=== PATIENT | female | born 1945 | race Caucasian/White ===

== ENCOUNTER 2019-10-17 06:00 | Outpatient (RCR) | payer MEDICARE, SELFPAY | END 2019-11-14 00:01 | LOC: LAB 06:00 | PROVIDERS: Family Provider Nurse Practitioner Family; Visit Provider Nurse Practitioner Family | DX: E11.9 Type 2 diabetes mellitus without complications (principal) | CPT/HCPCS: 36415; 80048 ==

== ENCOUNTER 2019-12-06 10:16 | Outpatient (RCR) | payer MEDICARE, SELFPAY ==
[2019-12-06 10:37] LABS: Basophils % 0.4 %; Eosinophils # 0.3 10^3/uL (0.0-0.8); Eosinophils % 4.3 %; Hematocrit 35.8 % (37.0-47.0); Hemoglobin 11.9 g/dL (11.5-15.3); Lymphocytes # 2.6 10^3/uL (0.8-4.8); Lymphocytes % 36.5 %; Mean Corpuscular HGB Conc 33.2 g/dL (30.0-36.0); Mean Corpuscular Hemoglobin 30.9 pg (28.0-34.0); Mean Platelet Volume 10.4 fL (7.4-10.4); Monocytes # 0.6 10^3/uL (0.2-0.9); Monocytes % 8.6 %; Neutrophils # 3.5 10^3/uL (1.8-7.7); Neutrophils % 49.8 %; Nucleated Red Blood Cells % 0 %; Platelet Count 230 10^3/cmm (130-400); Red Blood Count 3.85 10^6/uL (4.1-5.3); Red Cell Distribution Width 12.8 % (12.1-15.1)
[2019-12-06 11:00] LABS: Anion Gap 19.4 (5-19); Blood Urea Nitrogen 12 mg/dL (8-23); Carbon Dioxide 22 mmol/L (22-29); Chloride 96 mmol/L (98-107); Glucose 201 mg/dL (74-106); Osmolality Calculated 278 mOsm/kg (285-295); Potassium 4.4 mmol/L (3.5-5.1); Sodium 133 mmol/L (136-145)
[2019-12-06 11:07] LABS: Estmated Average Glucose 232; Hemoglobin A1C 9.7 % (4.0-6.0)
== END 2019-12-15 23:59 | disposition home or self-care (01) ==
LOC: LAB 10:16
PROVIDERS: Dermatology; Family Provider Nurse Practitioner Family; Visit Provider Nurse Practitioner Family
DX: E11.9 Type 2 diabetes mellitus without complications (principal); I10 Essential (primary) hypertension
CPT/HCPCS: 80048; 83036; 85025

== ENCOUNTER 2020-08-09 18:24 | Emergency (ER) | payer MEDICARE, SELFPAY ==
[2020-08-09 18:28] VITALS: BP 133/84; PULSE 87; RESP 18; TEMP 36.6; O2SAT 96; BMI 26.4
--- NOTE | 2020-08-09 18:37 | CTR_ITS ---
PROCEDURE INFORMATION: Exam: CT Head Without Contrast Exam date and time: 08/09/2020 6:43 PM Age: 74 years old Clinical indication: Injury or trauma; Fall; Initial encounter; Blunt trauma (contusions or hematomas) and laceration; Consciousness not specified; Without residual foreign body; Patient HX: Found on floor at assisted living facility lac to forehead unk loc TECHNIQUE: Imaging protocol: Computed tomography of the head without contrast. Sagittal and coronal reformatted images were created and reviewed. Radiation optimization: All CT scans at this facility use at least one of these dose optimization techniques: automated exposure control; mA and/or kV adjustment per patient size (includes targeted exams where dose is matched to clinical indication); or iterative reconstruction. COMPARISON: CT head wo con* [id number] 12/30/2018 9:14 AM RADIATION DOSE METRICS: Total DLP (mGy-cm): 760.85 FINDINGS: Brain: No acute intracranial hemorrhage. No acute infarct. No intra-axial or extra-axial masses. Sagastume-white matter differentiation is preserved. No cerebral edema. No extra-axial fluid collections. No midline shift. No evidence for Chiari 1 malformation. Stable moderate atrophy of the brain parenchyma. Stable markedly decreased attenuation in the deep white matter, consistent with severe chronic microangiopathic change. Cerebral ventricles: No hydrocephalus. Bones/joints: Moderate left deviation of the visualized nasal septum. Paranasal sinuses: Visualized paranasal sinuses are clear. Mastoid air cells: Mastoid air cells are clear bilaterally. Orbits: No acute abnormality in the visualized orbits. Vasculature: Atherosclerotic changes in the visualized arteries. Soft tissues: Small frontal scalp hematoma/laceration extending from the midline to the right. CT/CT head wo con* [id number] IMPRESSION: 1. No acute abnormality of the brain. 2. Stable moderate atrophy of the brain parenchyma. 3. Stable severe chronic white matter microangiopathic change. 4. Small frontal scalp hematoma/laceration extending from the midline to the right. 5. Incidental/nonacute findings are listed in the report. Radiation Dose CTDIVOL = (mGy): DLP = 760.85 (mGy-cm)
--- NOTE | 2020-08-09 18:37 | CTR_ITS ---
PROCEDURE INFORMATION: Exam: CT Cervical Spine Without Contrast Exam date and time: 08/09/2020 6:43 PM Age: 74 years old Clinical indication: Injury or trauma; Fall; Initial encounter; Blunt trauma; Patient HX: Found on floor at assisted living facility lac to forehead unk loc TECHNIQUE: Imaging protocol: Computed tomography images of the cervical spine without contrast. Sagittal and coronal reformatted images were created and reviewed. Radiation optimization: All CT scans at this facility use at least one of these dose optimization techniques: automated exposure control; mA and/or kV adjustment per patient size (includes targeted exams where dose is matched to clinical indication); or iterative reconstruction. COMPARISON: No relevant prior studies available. RADIATION DOSE METRICS: Total DLP (mGy-cm): 228.97 FINDINGS: Vertebrae: Vertebral body height is maintained. No subluxation. Normal bone mineralization. No acute fracture. Discs/Spinal canal/Neural foramina: Multilevel degenerative changes of varying severity in the visualized spine. Moderate spinal canal stenosis at C3-C4. Multilevel foraminal stenosis of varying severity in the cervical spine. Epidural space: No evidence for an epidural hematoma. Soft tissues: No soft tissue swelling. No radiopaque foreign body. Lungs: Visualized lungs are clear. Vasculature: Atherosclerotic changes in the visualized arteries. CT/CT cervical spin wo con* [id number] IMPRESSION: 1. No acute fracture of the cervical spine. 2. Multilevel degenerative changes of varying severity in the visualized spine. 3. Incidental/nonacute findings are listed in the report. Radiation Dose CTDIVOL = (mGy): DLP = 228.97 (mGy-cm)
--- NOTE | 2020-08-09 18:39 | PC.NURSE ---
pt to ct by stretcher with tech
--- NOTE | 2020-08-09 19:56 | PC.NURSE ---
Contacted patient's brother, Jake, to arrange transport. Jake is oh his way to pick her up now.
[2020-08-09 19:57] VITALS: BP 99/74; PULSE 90; RESP 12; O2SAT 98
--- NOTE | 2020-08-10 19:01 | ED_ITS ---
HPI - Head Injury General: Chief complaint: Head Injury Stated complaint: LACERATION POST FALL Time Seen by Provider: 08/09/20 18:38 History of Present Illness: HPI Narrative: 74-year-old senior care patient. She fell in the senior care. Unknown loss of consciousness. She has pain to her head, and some neck pain. No other complaints. She evidently was alert and oriented x3 on EMS arrival, but has had some decreased mental status here. MD Complaint: head injury Onset (ago): minute(s) Mechanism of Injury: fall Place: other (senior care) Loss of Consciousness: unsure Location of injury: frontal Quality: dull Radiation: none Other Injuries: none Associated symptoms: Reports neck pain; Deny nausea or vomiting Review of Systems Const: Denies: fever(s) or chills Eyes: Denies: blurry vision ENMT: Denies: swelling of lips/tongue, bleeding gums or epistaxis Card: Denies: chest pain, palpitations or irregular heart rhythm Resp: Denies: dyspnea, productive cough, non-productive cough or wheezing GI: Denies: abdominal pain, nausea, vomiting, rectal pain, hematochezia or melena : Denies: dysuria or hematuria Musc: Reports: neck pain; Denies: back pain, joint redness or joint warmth Skin/Breast: Denies: rash, pruritus or erythema Neuro: Denies: headache(s), dizziness or seizure-like activity Psych: Denies: anxiety Physical Exam Const: GENERAL APPEARANCE: well developed ORIENTATION/CONSCIOUSNESS: Yes oriented to person and Yes oriented to place; not oriented to time HENMT: COMMON NORMALS: normocephalic, external ears normal and Normal external nose present HEAD & SCALP: normocephalic FACE & SINUS: normal facial exam NOSE: Normal external nose present and No nasal discharge present EXTERNAL EAR: Yes external ears normal Eye: COMMON NORMALS: Equal, round and reactive pupils present, EOMs intact b ilaterally and conjunctivae normal EYELID: eyelids normal CONJUNCTIVA: Yes conjunctivae normal PUPIL: Yes Equal, round and reactive pupils present Neck/C-Spine: GENERAL: No tracheal deviation Chest: COMMONS NORMALS: normal inspection of the chest CHEST: No tenderness Resp: COMMON NORMALS: clear to auscultation bilaterally EFFORT & INSPECTION: No tachypneic, No respiratory distress and No tracheal deviation AUSCULTATION: clear to auscultation bilaterally, no rhonchi, no wheezes and lung sounds not diminished Cardio: COMMON NORMALS: regular rate and regular rhythm RATE: regular rate RHYTHM: regular rhythm HEART SOUNDS: no murmurs PERIPHERAL PULSES: radial pulses present GI: INSPECTION: No abdominal distension AUSCULTATION: No Hyperactive bowel sounds present and No Hypoactive bowel sounds present PALPATION: No Guarding due to palpation present (GI) and No Rigid due to palpation PERCUSSION: no dullness to percussion and no tympanic to percussion Neuro: SENSORIUM/ORIENTATION: Yes oriented to person, Yes oriented to place and No oriented to time Psych: COMMON NORMALS: mental status grossly normal Skin: COMMON NORMALS: no rashes or lesions noted GENERAL SKIN EXAM: no rashes or lesions noted Course Vital Signs: Vital signs: Vital Signs Temperature 97.9 F 08/09/20 18:28 Pulse Rate 90 08/09/20 19:57 Respiratory Rate 12 08/09/20 19:57 Blood Pressure 99/74 08/09/20 19:57 Pulse Oximetry 98 08/09/20 19:57 MDM - Head Injury MDM Narrative: Medical decision making narrative: Head and cervical spine CTs are negative. She is awake and talking. She does have a history of dementia, which may attribute to her decreased mental status. She will be discharged. Discharge Plan Discharge Patient Disposition: Home Clinical Impression: Concussion with loss of consciousness Qualifiers: Encounter type: initial encounter Qualified Code(s): S06.0X9A - Concussion with loss of consciousness of unspecified duration, initial encounter Condition: Stable Discharge Orders: Discharge Order (Routine); Ordered 08/09/20 Ordered By: Victoriano Eckert Referrals: Drea Garcia ARNP [Nurse Practitioner] - 4-7 days Discharge Diet: Advance as tolerated Discharge Activity: Increase activity as tolerated Patient Instructions: Concussion (ED) Activity Restrictions/Additional Instructions: Return for worsening mental status, repeated episodes of vomiting, worsening headache, fever, other concerning symptoms Discharge Date/Time: 08/09/20 20:48 Coding Level of Care Code ED Alteration Inspector for Jefferson Burciaga
== END 2020-08-09 20:48 | disposition home or self-care (01) ==
LOC: ER 20:14
PROVIDERS: Emergency Provider Emergency Medicine
DX: S06.0X9A Concussion with loss of consciousness of unspecified duration, initial encounter (principal); W19.XXXA Unspecified fall, initial encounter; Y92.129 Unspecified place in nursing home as the place of occurrence of the external cause
CPT/HCPCS: 12345; 70450; 72125; 99281; 99283

== ENCOUNTER 2021-03-28 14:15 | Outpatient (CLI) | payer MEDICARE, SELFPAY ==
--- NOTE | 2021-03-28 14:38 | USCV_ITS ---
Do García Age: 75 Gender: F : 1945 Exam Date: 03/28/2021 15:12 Ordering Phys: Marlene Mejia NP Technologist: HERNANDEZ Exam Location: [facility] – [place], [place] Indication: PAIN IN RLE HISTORY: Lower extremity pain. PROCEDURES: Venous duplex imaging was performed in only the right lower extremity. The following venous structures were evaluated: common femoral vein, profunda vein, proximal portion of the greater saphenous vein, superficial femoral vein, and the popliteal vein. In addition, the posterior tibial and peroneal trunk were evaluated. Serial compression, augmentation maneuvers, and spectral Doppler flow evaluation were performed. FINDINGS: Normal 2-D Doppler and augmentation and compressibility throughout the lower extremity venous structures. Additional imaging through the proximal calf veins also reveals no thrombus. Limited evaluation of the greater saphenous vein is patent with no thrombus. CONCLUSIONS No DVT right lower extremity. Dr. Tosha Haley DO (Electronically Signed) Final Date: 28 Mar 2021 16:01 S
== END 2021-03-28 14:16 | disposition home or self-care (01) ==
LOC: RAD 14:22
PROVIDERS: Visit Provider Nurse Practitioner Family
DX: M79.604 Pain in right leg (principal)
CPT/HCPCS: 93971

== ENCOUNTER 2021-04-29 09:04 | Day surgery (SDC) | payer MEDICARE, SELFPAY ==
[2021-04-29] VITALS (18 sets, daily range): BP systolic 83–140; BP diastolic 54–91; PULSE 70–108; RESP 6–21; TEMP 36.3–36.6; O2SAT 83–99; BMI 16.6
--- NOTE | 2021-04-29 08:46 | XACV_ITS ---
Ht: 152 cm Wt: 39 kg BSA: 1.27 m2 Any Known Allergies: Other Gender: Female : 1945 Exam Type: Invasive Peripheral Vascular Procedure(s): Procedure Description: Peripheral Cath Diagnostic Procedure Procedure Description: Abdominal aortic angiography Procedure Description: Lower extremities' angiography Exam Priority: Routine Abdominal Diagnostic Findings Patent distal Aorta. Lower Extremity Diagnostic Findings Right common iliac artery: Patent Right external iliac artery: Patent Right internal iliac artery: Patent Right common femoral artery: Patent Right profunda femoral artery: Patent Right SFA: It is a calcified vessel with servere subtotal occlusion of the distal vessel at the junction with popliteal vessel. There are collaterals from the SFA that supply below the knee territories. Right popliteal artery: Subtotally occluded Below the knee vessels: TP trunk: Severe diffusely diseased small sized vessel. Posterior tibial artery: Supplied by collaterals. Small sized, diffusely diseased vessel. Anterior tibial artery: Occluded however reconstitutes with significant collaterals. Peroneal artery: Small sized, diffusely diseased vessel.. Left right common iliac artery: Patent Left external iliac artery: Patent Left internal iliac artery: Patent Left common femoral artery: Patent Left profunda femoral artery: Patent Left SFA: Mid to distal vessel has serial, calcified, severe stenosis. Left popliteal artery: Patent Below the knee vessels are not well-visualized. TP segment: Appears to be occluded, collateral supply is seen. Anterior tibial artery: Appears to be occluded. However because of limited visualization cannot assess left [id number] arteries well. . Lower Extremity Interventional Findings Procedure detail: Access was obtained in left common femoral artery. After performing abdominal angiogram with a UF catheter, guidewire was advanced into right SFA. A long sheath was placed in right external iliac artery. With the help of Glidewire and seeker support catheter we attempted to cross the distal SFA to popliteal lesion. However it was heavily calcified and the wire was going to subintimately. Decreased flow was noted in the popliteal artery. However patient had a strong collaterals secondary to subtotal occlusion before and pulses were palpable and dopplerable in the right foot. At this time we decided to abort further attempts for revascularization and treat patient medically.. Conclusions Severe peripheral artery disease. Unsuccessful revascularization of the right lower extremity. Has good collateral flow that supplies the below the knee arteries. Will recommend medical therapy as run off is with small sized vessels. Will also discuss with Dr Ayala if bypass surgery is an option but given good collaterals and small sized run off vessels, medical therapy for now. Left SFA with severe disease. Below the knee has severe disease but not well visualized. Recommendations Transfer to [facility]. Will observe overnight. Continue medical therapy. Outpatient cardiology follow up. Hemodynamic Data Phase:Rest AO : 117.0 / 84.0 ( 90.0 ) @ 10:52:00 AM Access Site Site: Left Femoral artery Sheath Size: 6 Fr Hemost... Method: Manual Compression Hemost... Success: Successful Procedure Details Findings Pre-Procedure Time Out. Identified patient by full name and date of as verbalized by the patient/guarantor. Does the consent match the physician's order: Yes. Accurate & Complete Informed Consent: Yes. Inpatient/Outpatient History & Physical on Chart: Yes. If H&P is completed, is and addenduem needed: No; If yes, is the addendum complete: N/A. Visualize and Verify Site with Patient/Guarantor: N/A. Relevant Radiology Images available: N/A. Pre-op teaching completed and patient verbalized understanding. The risks, benefits, and alternatives of sedation and/or procedure were discussed by physician. The patient agrees to continue. Procedure started. Physician arrived. Correct patient, site and procedure confirmed by cath team. PERRLA. Strong, equal hand investigator vice bilaterally. Lungs clear x 5 lobes. IV Site on Arrival: 20 gauge in the left wrist. IV Fluids: 0.9% NaCl at KVO. 0 mL infused prior to engineering laboratory technician. Pre Procedural Pulses: bilateral dorsalis pedis was Doppled. Pre Procedural Pulses: bilateral posterior tibial was Doppled. Pre Procedural Pulses: right radial was 1+. Pre Procedural Pulses: left radial was 3+. Oxygen started at 2liters/min via nasal canula. bilateral groins was prepped with chloroprep then draped in the usual sterile fashion. Baseline sample Acquired. HR: 84 BPM. Physician scrubbed in. Time out performed with cath team. Lidocaine 1% infiltrated to the left groin. Arterial access obtained with micropuncture set. Lidocaine 1% infiltrated to the left groin. Equipment: Peripheral. Cardiac Cath Pack. ACIST Manifold Kit Model BT 2000. Heparinized Saline (2 units/mL), 1000 mL bag. Inventory is JJ 6F 11cm Rosa Maria Plus Sheath. A Deem 5F UF catheter 65cm was advanced over the wire and used for Abdominal aortogram with runoff. Abdominal aortogram performed in AP @ 12 mL/sec for a total of 30 mL. Glidewire inserted. Catheter removed over the glide wire. A JJ 5F RIM 65 cm Diagnostic Catheter was advanced over the wire and used for Lower extremity arteriography. Right leg runoff 10 ml for total of 20 ml. Catheter removed over the glide wire. Short 6 fr sheath exchanged for long 45 cm 6 fr Flexor sheath. Inventory is CK 6 FR FLEXOR SHEATH 45CM. A 5Fr SEEKER catheter in over wire. Glidewire out. Hand injection performed. Glidewire inserted. Glidewire out. Runthrough 300 cm wire inserted. Runthrough wire out. Hand injection performed. Runthrough 300 cm wire inserted. Runthrough wire out. Glidewire inserted. Glidewire out. Hand injection performed. Runthrough 300 cm wire inserted. Runthrough wire out. Seeker catheter removed. Right leg runoff 10 ml for total of 20 ml. Long 45 cm 6 fr Flexor sheath exchanged for short 6 fr sheath. Left leg runoff 10 ml for total of 30 ml through the sheath. DSA picture of left lower leg 10 ml for total of 30 ml. Physician scrubbed out. Sheath(s) removed and manual pressure held until hemostasis was achieved. Sterile 4x4 and Op-site applied to the puncture site. No oozing or hematoma noted. Post sheath removal instructions were given and the patient verbalized understanding. A Manual Compression was successful obtaining hemostatsis at the Left Femoral artery insertion site. Post Procedure: Pulses reassessed and unchanged. PERRLA. Strong, equal hand investigator vice bilaterally. No VTE prophylaxis required. Contrast type used: Visipaque 320 mgI/mL, 500 mL bottle. Post-op diagnosis: sub total occlusion distal SFA, mid to distal L sfa stenosis. Complications: none. Estimated blood loss: 5mL-10mL. Medication's Wasted: Lidocaine 1% = 10 mL. Medication's Wasted: Heparin = 1000 units. Total IV fluids: 80 mL. Medication's Wasted: Other = versed 1 mg. Medication's Wasted: Other = fentanyl 50 mcg. Procedure completed. Patient transferred by bed to 1st floor. Vital chart was stopped. Procedure Medications Start: 11:36 AM Stop: 11:36 AM Medication: Versed Amount: 1 mg Route: I.V. Start: 11:36 AM Stop: 11:36 AM Medication: Fentanyl Amount: 25 mcg Route: I.V. Start: 11:48 AM Stop: 11:48 AM Medication: Versed Amount: 1 mg Route: I.V. Start: 11:52 AM Stop: 11:52 AM Medication: Fentanyl Amount: 12.5 mcg Route: I.V. Start: 12:31 PM Stop: 12:31 PM Medication: Versed Amount: 1 mg Route: I.V. Start: 12:31 PM Stop: 12:31 PM Medication: Fentanyl Amount: 12.5 mcg Route: I.V. I, the attending physician, have reviewed and verified all procedure medications. Yes, all medications given per verbal order History/Risk Factors Hypertension: No Dyslipidemia: No Peripheral Arterial Disease (PAD): Yes Obesity: No Renal Disease: No Tobacco Use: Never Prior Interventions PCI: No CABG: No Valve Surgery: No Report Signatures Finalized by Willian Lerma MD on 05/13/2021 09:01 PM
[2021-04-29] MEDS: diphenhydrAMINE 50 mg Capsule PO (09:47)
--- NOTE | 2021-04-29 11:41 | W.PM.OPSUD ---
Surgery/Procedure H&P Update DATE OF PROCEDURE: April 29, 2021 DATE H&P PERFORMED: 04/24/21 H&P UPDATE INFORMATION: I have reviewed H&P completed within last 30 days, I have examined patient prior to procedure and Changes to prior documentation as noted here CHANGES TO PREVIOUS DOCUMENTATION: Patient has critical limb ischemia with non healing wounds on the right foot (toes). Discussed with patient's brother the risks and benefits of the procedure who understands the risks and benefits and wants to proceed with the procedure. PREOP DIAGNOSIS: Critical limb ischemia PRIMARY INDICATION FOR PROCEDURE: Critical limb ischemia PLANNED PROCEDURE: Operation Date: 04/29/21 10:00 Proposed Procedures p Peripheral Diagnostic 81534 I73.9(Not Applicable) - Willian Lerma M.D Possible peripheral intervention PATIENT REASSESSED PRIOR TO SEDATION, WITH NO CHANGE NOTED: Yes PHYSICAL EXAM: alert, oriented x 3, clear to auscultation bilaterally and regular rate & rhythm AIRWAY EVAL/ANESTHESIA PLAN: ASA III, Monitored Anesthesia, Local Anesthesia, Risks, benefits & alternatives of sedation and/or procedure discussed and Patient agrees to continue as planned (Patient has significant dementia. Her brother gave the consent for the procedure)
[2021-04-29] MEDS: memantine 5 mg tablet 10 MG PO (18:03)
[2021-04-29] MEDS: temazepam 15 mg Capsule PO (23:12)
[2021-04-29] MEDS: sodium chloride 0.9% 250 ML IV (23:50)
[2021-04-30] VITALS (8 sets, daily range): BP systolic 97–131; BP diastolic 63–93; PULSE 79–96; RESP 12–18; TEMP 36.4–36.6; O2SAT 95–99
--- NOTE | 2021-04-30 01:26 | PC.NURSE ---
notified Dr Dillard of low bp 83/54, 250 cc bolus ordered, bp incresed to 97/59
[2021-04-30] MEDS: sodium chloride 0.9% 1,000 ML 75 ML IV (01:47)
[2021-04-30 05:27] LABS: Basophils % 0.7 %; Eosinophils # 0.1 10^3/uL (0.0-0.8); Eosinophils % 2.1 %; Hematocrit 31.7 % (37.0-47.0); Hemoglobin 10.1 g/dL (11.5-15.3); Lymphocytes # 1.8 10^3/uL (0.8-4.8); Mean Corpuscular HGB Conc 31.9 g/dL (30.0-36.0); Mean Corpuscular Hemoglobin 30.4 pg (28.0-34.0); Mean Corpuscular Volume 95.5 fL (81-99); Mean Platelet Volume 10.8 fL (7.4-10.4); Monocytes # 0.5 10^3/uL (0.2-0.9); Monocytes % 8.7 %; Neutrophils # 3.56 10^3/uL (1.8-7.7); Neutrophils % 58.2 %; Nucleated Red Blood Cells % 0 %; Platelet Count 183 10^3/cmm (130-400); Red Blood Count 3.32 10^6/uL (4.1-5.3); Red Cell Distribution Width 13.1 % (12.1-15.1); White Blood Count 6.1 10^3/uL (4.0-10.0)
[2021-04-30 05:40] LABS: Blood Urea Nitrogen 12 mg/dL (8-23); Calcium 8.5 mg/dL (8.5-10.5); Carbon Dioxide 20 mmol/L (22-29); Chloride 106 mmol/L (98-107); Glucose 94 mg/dL (65-115); Osmolality Calculated 284 mOsm/kg (285-295); Sodium 137 mmol/L (136-145)
[2021-04-30] MEDS: acetaminophen 325 mg Tablet 650 MG PO (05:40)
[2021-04-30 05:41] LABS: Anion Gap 14.7 (5-19); Potassium 3.7 mmol/L (3.5-5.1)
--- NOTE | 2021-04-30 07:00 | PC.NURSE ---
Received report from MO He. Patient is resting in bed, oriented to self only. Bed alarm has been set and patient educated about fall risk and the use of call luna for assistance.
[2021-04-30] MEDS: docusate sodium 100 mg Capsule PO (09:27)
[2021-04-30] MEDS: aspirin 81 mg EC Tablet PO (09:27)
[2021-04-30] MEDS: clopidogrel 75 mg Tablet PO (09:27)
[2021-04-30] MEDS: atorvastatin 40 mg Tablet 20 MG PO (09:27)
[2021-04-30] MEDS: lisinopril 2.5 mg Tablet PO (09:28)
[2021-04-30] MEDS: mirtazapine 15 mg Tablet 7.5 MG PO (09:28)
[2021-04-30] MEDS: memantine 5 mg tablet 10 MG PO ×2 (09:28→18:47)
--- NOTE | 2021-04-30 09:56 | PM.SDS ---
Short Stay Summary Providers Date of Admit/Discharge: 05/13/21 Attending Provider: Willian Lerma M.D Primary Care Provider: Kylie Mcallister MD Chief Complaint: Peripheral Diagnostic HPI History of Present Illness Do García is a 75 year old female who has PMH of hypertension and dementia was referred by Dr Ayala for peripheral angiogram with possible percutaneous intervention. She has critical limb ischemia with non healing wounds on the right foot toes. Review of Systems Narrative: Patient has dementia and does not accurately describe her symptoms Eyes: Denies: change in vision or eye redness ENMT: Denies: throat pain, odynophagia, mouth pain or epistaxis Card: Denies: chest pain, palpitations, irregular heart rhythm, edema, syncope, pre-syncope, dyspnea on exertion, orthopnea or leg pain with exertion Resp: Denies: dyspnea, productive cough or wheezing GI: Denies: nausea, vomiting, hematemesis, hematochezia or melena : Denies: hematuria Musc: Denies: extremity swelling or joint pain Skin/Breast: Denies: rash, pruritus, erythema or new lesions Neuro: Reports: sensory changes (feet); Denies: numbness in extremities, weakness in extremities, frequent falls, Slurred speech present or difficulty communicating thoughts Psych: Denies: anxiety, depression, irritability, suicidal ideation or homicidal ideation Endo: Denies: polyuria, polydipsia or excessive sweating Herb/Lymph: Denies: easy bruising or easy bleeding Home Meds/Allergies Home Medications and Allergies Home Medications Medication Instructions Recorded Confirmed Type alprazolam 0.25 mg tablet 0.125 mg PO PRN PRN tab 04/24/21 05/08/21 History aspirin 81 mg tablet,delayed 81 mg PO DAILY 04/24/21 05/08/21 History release atorvastatin 20 mg tablet 20 mg PO DAILY 04/24/21 05/08/21 History clopidogrel 75 mg tablet 75 mg PO DAILY 04/24/21 05/08/21 History docusate sodium 100 mg capsule 100 mg PO DAILY 04/24/21 05/08/21 History latanoprost 0.005 % eye drops 1 drp OPHTHALMIC (EYE) DAILY 04/24/21 05/08/21 History lisinopril 2.5 mg tablet 2.5 mg PO DAILY 04/24/21 05/08/21 History memantine 10 mg tablet 10 mg PO BID 04/24/21 05/08/21 History metformin 500 mg tablet 500 mg PO DAILY 04/24/21 05/08/21 History mirtazapine 7.5 mg tablet 7.5 mg PO DAILY 04/24/21 05/08/21 History ondansetron HCl 4 mg tablet 4 mg PO .q4hr PRN tab 04/24/21 05/08/21 History acetaminophen 325 mg tablet 325 mg PO QID PRN 05/08/21 05/08/21 History coenzyme Q10 100 mg capsule 100 mg PO DAILY 05/08/21 05/08/21 History magnesium hydroxide 400 mg/5 mL 5 ml PO DAILY PRN 05/08/21 05/08/21 History oral suspension nitroglycerin 0.4 mg sublingual 0.4 mg SUBLINGUAL Q5M PRN 05/08/21 05/08/21 History tablet tuberculin PPD INTRADERMAL 05/08/21 05/08/21 History Allergies Allergy/AdvReac Type Severity Reaction Status Date / Time donepezil [From Aricept] Allergy Unknown UNKNOWN Verified 05/08/21 13:41 PFSH Acute PFSH: Medical History Alzheimer disease Peripheral Vascular Disease Family History Mother CAD (coronary artery disease) Sister CAD (coronary artery disease) Father Cancer Denies family history of Diabetes Stroke Social History Smoking and tobacco status: never smoked Alcohol intake: never Vitals/I&O/Wt Last Vital Signs Temp 97.8 F 04/30/21 07:16 Pulse 95 04/30/21 08:23 Resp 18 04/30/21 07:16 BP 102/69 04/30/21 07:16 Pulse Ox 96 04/30/21 08:23 04/29/21 04/30/21 04/30/21 22:59 06:59 14:59 Intake Total 120 / 120 310 / 430 Balance 120 / 120 310 / 430 Weight last 48 hrs Weight 85 lb Physical Exam Const: COMMON NORMALS: no acute distress and alert (Oriented only to self) GENERAL APPEARANCE: cooperative HENMT: COMMON NORMALS: normocephalic HEAD & SCALP: normocephalic Eye: COMMON NORMALS: Equal, round and reactive pupils present PUPIL: Yes Equal, round and reactive pupils present Resp: COMMON NORMALS: clear to auscultation bilaterally AUSCULTATION: clear to auscultation bilaterally Cardio: COMMON NORMALS: regular rate, regular rhythm, S1 normal heart sound present and S2 normal heart sound present RATE: regular rate RHYTHM: regular rhythm HEART SOUNDS: S1 normal heart sound present and S2 normal heart sound present GI: COMMON NORMALS: Soft to palpation PALPATION: Yes Soft to palpation : COMMON NORMALS: Yes no CVA tenderness BLADDER/KIDNEY EXAM: Yes no CVA tenderness Back/Pelvis: COMMON NORMALS: no CVA tenderness Neuro: SENSORIUM/ORIENTATION: Yes alert (Oriented only to self) Hospital Course Hospital Course Do García is a 75 year old female who has PMH of hypertension and dementia was referred by Dr Ayala for peripheral angiogram with possible percutaneous intervention. She has critical limb ischemia with non healing wounds on the right foot toes. Peripheral angiogram showed severe PAD with subtotal occlusion of distal SFA, with good collaterals supplying below the knee arteries. TP trunk was severely diseased. AT had total occluson with reconstitution from collateral supply. Medical therapy was opted as equipment could not be crossed into distal vasculature. SSS Data Data Completed and Pending: Pending at discharge Category Date Time Status ASSISTANT DISTRICT ATTORNEY request for service Routin e Exams 04/29/21 08:46 Taken Discharge Plan Discharge Patient Disposition: Xfer SNF Condition: Stable Prescriptions: Continued memantine 10 mg tablet 10 mg PO BID RF: 0 aspirin 81 mg tablet,delayed release (DR/EC) 81 mg PO DAILY RF: 0 clopidogrel 75 mg tablet 75 mg PO DAILY RF: 0 lisinopril 2.5 mg tablet 2.5 mg PO DAILY RF: 0 alprazolam 0.25 mg tablet 0.125 mg PO PRN PRN (Reason: Anxiety) RF: 0 atorvastatin 20 mg tablet 20 mg PO DAILY RF: 0 mirtazapine 7.5 mg tablet 7.5 mg PO DAILY RF: 0 docusate sodium 100 mg capsule 100 mg PO DAILY RF: 0 ondansetron HCl 4 mg tablet 4 mg PO .q4hr PRN (Reason: Nausea) RF: 0 latanoprost 0.005 % drops 1 drp ophthalmic (eye) DAILY RF: 0 Held metformin 500 mg tablet 500 mg PO DAILY RF: 0 Hold Instructions: Resume on 05/02/21. No Action Tubersol 5 tub. unit /0.1 mL solution intradermal RF: 0 nitroglycerin 0.4 mg tablet, sublingual 0.4 mg sublingual Q5M PRNRF: 0 acetaminophen [Tylenol] 325 mg tablet 325 mg PO QID PRNRF: 0 coenzyme Q10 100 mg capsule 100 mg PO DAILY RF: 0 magnesium hydroxide [Milk of Magnesia] 400 mg/5 mL suspension 5 ml PO DAILY PRNRF: 0 Discharge Orders: Discharge Order (Routine); Ordered 04/30/21 Ordered By: Willian Lerma Referrals: [facility] [place] [Outside] Willian Lerma M.D [Physician] - 1 month Candy Borjas FNP [Nurse Practitioner] - 7-10 days Discharge Diet: Cardiac Discharge Activity: Increase activity as tolerated Activity Restrictions/Additional Instructions: Please do not lift more than 5 pounds of weight for the next 5 days Attestations Medical Necessity Statement*: Care not expected to cross 2 mid nights. Time Spent in Patient Care*: less than 30 min Quality Metrics Clinical Quality Measures: During this hospital stay, did patient experience: None Coding Level of Care Code Acute Sweatband Flanger for Jefferson Burciaga
--- NOTE | 2021-04-30 19:36 | PC.NURSE ---
AnJ arrived to warehouse order picker patient. Stated that he came earlier and no one anywhere could locate the patient and that is what caused the delay.Patient belongings sent with her, SNF packet sent, report called to [facility] nurse, Jud at 12:54pm. Taty, egg caser arranged transport prior to report being called, was told ride was scheduled for 1700pm. Patient left via personal wheelchair. VS stable upon departure. IV removed, intact and tolerated well.
== END 2021-04-30 19:42 | disposition skilled nursing facility (03) ==
LOC: CCL 09:18 → CSU 11:01
PROVIDERS: PCP Family Medicine; Visit Provider Internal Medicine
DX: I70.221 Atherosclerosis of native arteries of extremities with rest pain, right leg (principal); I70.92 Chronic total occlusion of artery of the extremities; I10 Essential (primary) hypertension; F03.90 Unspecified dementia, unspecified severity, without behavioral disturbance, psychotic disturbance, mood disturbance, and anxiety; Z79.82 Long term (current) use of aspirin; Z82.49 Family history of ischemic heart disease and other diseases of the circulatory system
CPT/HCPCS: 36415; 75625; 75716; 80048; 85025; C1769; C1887; C1894; J1644; J2250; J3010; J7030; J7050; Q0163; Q9967

== ENCOUNTER 2021-06-27 03:02 | Emergency (ER) | payer MEDICARE, SELFPAY ==
[2021-06-27 03:05] VITALS: BP 151/127; PULSE 112; RESP 17; TEMP 36.5; O2SAT 98
--- NOTE | 2021-06-27 03:11 | CTR_ITS ---
PROCEDURE INFORMATION: Exam: CT Head Without Contrast Exam date and time: 06/27/2021 3:11 AM Age: 75 years old Clinical indication: Injury or trauma; Blunt trauma (contusions or hematomas); Patient HX: Fall at halfway. Hematoma to RT forehead. On blood thinners. Alzheimer's disease. Unable to obtain further history. TECHNIQUE: Imaging protocol: Computed tomography of the head without contrast. Radiation optimization: All CT scans at this facility use at least one of these dose optimization techniques: automated exposure control; mA and/or kV adjustment per patient size (includes targeted exams where dose is matched to clinical indication); or iterative reconstruction. COMPARISON: CT head wo con* [id number] 08/09/2020 6:39 PM RADIATION DOSE METRICS: Total DLP (mGy-cm): 1317.64 FINDINGS: Brain: No acute infarct or hemorrhage. 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 There is moderate parenchymal atrophy and chronic small vessel disease. Cerebral ventricles: No ventriculomegaly. Paranasal sinuses: Paranasal sinuses are clear. No air-fluid level. Mastoid air cells: Visualized mastoid air cells are clear. Bones/joints: No calvarial or skull base fracture. Soft tissues: Right frontal scalp hematoma. CT/CT head wo con* [id number] IMPRESSION: 1. No acute infarct or hemorrhage. 2. No calvarial or skull base fracture. 3. 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 4. Moderate parenchymal atrophy and chronic small vessel disease. Radiation Dose CTDIVOL = (mGy): DLP = 1317.64 (mGy-cm)
--- NOTE | 2021-06-27 03:11 | CTR_ITS ---
PROCEDURE INFORMATION: Exam: CT Cervical Spine Without Contrast Exam date and time: 06/27/2021 3:11 AM Age: 75 years old Clinical indication: Injury or trauma; Blunt trauma; Patient HX: Fall at senior living. Hematoma to RT forehead. On blood thinners. Alzheimer's disease. Unable to obtain further history. TECHNIQUE: Imaging protocol: Computed tomography images of the cervical spine without contrast. Radiation optimization: All CT scans at this facility use at least one of these dose optimization techniques: automated exposure control; mA and/or kV adjustment per patient size (includes targeted exams where dose is matched to clinical indication); or iterative reconstruction. COMPARISON: CT cervical spin wo con* [id number] 08/09/2020 6:41 PM RADIATION DOSE METRICS: Total DLP (mGy-cm): 206.81 FINDINGS: Bones/joints: There is normal vertebral body alignment. There are normal vertebral body heights. The dens is intact. The lateral masses of C1 are symmetric. No fracture. Discs/Spinal canal/Neural foramina: Craniocervical articulation is normal. Atlantodental interval and prevertebral soft tissues are normal. Severe intervertebral disc space narrowing at C3-C4, C5-C6. Lungs: Lung apices are normal. Soft tissues: Unremarkable. CT/CT cervical spin wo con* [id number] IMPRESSION: No fracture. Radiation Dose CTDIVOL = (mGy): DLP = 206.81 (mGy-cm)
--- NOTE | 2021-06-27 03:14 | ED_ITS ---
Documented by User: VINNY Ca 06/27/21 03:28 HPI - Fall General: Chief Complaint: Fall Stated Complaint: fell hit head Time Seen by Provider: 06/27/21 03:12 History of Present Illness: HPI Narrative: 75-year-old female from [facility]. This is Alzheimer's patient that fell trying to get out of bed. Patient was found on the floor with a hematoma to the right forehead. Patient does have a history of diabetes mellitus, hypertension, peripheral artery disease, and antiplatelet therapy. Review of Systems General: Reports: 10 or more systems reviewed and unremarkable except in HPI and below Skin/Breast: Reports: other (Forehead hematoma.) [facility] ED PFS: Medical History (Updated 06/27/21 @ 06:35 by Stephen Pierson MD) Alzheimer disease Anxiety disorder Cardiac arrhythmia, unspecified Cognitive communication deficit Contact with and (suspected) exposure to other viral communicable diseases Diabetes mellitus due to underlying condition with diabetic nephropathy Dysphagia, oropharyngeal phase Essential (primary) hypertension History of falling Hyperlipidemia, unspecified Muscle weakness (generalized) Nausea Other Alzheimer's disease Peripheral Vascular Disease Surgical History History of heart artery stent Family History Mother CAD (coronary artery disease) Sister CAD (coronary artery disease) Father Cancer Denies family history of Diabetes Stroke Social History Smoking and tobacco status: never smoked Alcohol intake: never Physical Exam Const: COMMON NORMALS: no acute distress and patient oriented x3 GENERAL APPEARANCE: cooperative HENMT: COMMON NORMALS: Normal external nose present HEAD & SCALP: normal to inspection NOSE: Normal external nose present MOUTH: Normal oral and palatal mucosa present THROAT: posterior oropharynx normal OTHER: 4 cm circular hematoma noted to the right forehead with mild abrasion. Eye: GENERAL EYE: appearance normal, both eyes and all related structures Neck/C-Spine: OTHER: Patient has decreased range of motion of the neck Lymph: LYMPHATIC: no lymphadenopathy noted Chest: COMMONS NORMALS: normal inspection of the chest Resp: COMMON NORMALS: normal respiratory effort EFFORT & INSPECTION: Yes able to speak in complete sentences Cardio: COMMON NORMALS: regular rate and regular rhythm RATE: regular rate RHYTHM: regular rhythm GI: COMMON NORMALS: Soft to palpation and non-tender PALPATION: Yes Soft to palpation Back/Pelvis: OTHER: Patient is kyphotic. Extremity: NARRATIVE EXTREMITY EXAM: Pelvis feels stable, patient is able to hold legs bilaterally up off the table. Neuro: COMMON NORMALS: patient oriented x3 and moves all extremities Psych: COMMON NORMALS: mental status grossly normal and cooperative Skin: COMMON NORMALS: no rashes or lesions noted GENERAL SKIN EXAM: no rashes or lesions noted Course ED course: 326, reviewed patient with Dr. Pierson who agreed to assume care on my leave of shift. Vital Signs: Vital signs: Vital Signs Temperature 97.7 F 06/27/21 03:05 Pulse Rate 94 06/27/21 07:03 Respiratory Rate 12 06/27/21 07:03 Blood Pressure 106/60 06/27/21 07:03 Pulse Oximetry 95 06/27/21 07:03 Discharge Plan Discharge Patient Disposition: [facility] Clinical Impression: Concussion, Hematoma, Fall Condition: Stable Discharge Orders: Discharge ED (Routine); Ordered 06/27/21 Ordered By: Stephen Pierson Referrals: Kylie Mcallister MD [Primary Care Provider] - Discharge Diet: Regular Discharge Activity: Resume usual activity Patient Instructions: Concussion (ED), Fall Prevention (ED) Activity Restrictions/Additional Instructions: Come back to the emergency room if you have any worsening pain, fever/chills, nausea/vomiting, or any new or concerning complaints. Sign Out Sign Out Data: Patient Sign Out occurred on 06/27/21 at 03:31. Patient's care was discussed, and care was transferred from Manuel Zeng to Stephen Pierson MD. Sign Out Comment: Awaiting CT scan of the head and neck Last updated by Manuel Zeng FNP at 06/27/21 03:29 Coding Level of Care Code ED Metal Model Maker for Chg Fwd Exam Comprehensive Documented by User: Stephen Pierson MD 06/27/21 07:49 HPI - Fall General: Chief Complaint: Fall Stated Complaint: fell hit head Time Seen by Provider: 06/27/21 03:12 PFSH ED PFSH: Medical History (Updated 06/27/21 @ 06:35 by Stephen Pierson MD) Alzheimer disease Anxiety disorder Cardiac arrhythmia, unspecified Cognitive communication deficit Contact with and (suspected) exposure to other viral communicable diseases Diabetes mellitus due to underlying condition with diabetic nephropathy Dysphagia, oropharyngeal phase Essential (primary) hypertension History of falling Hyperlipidemia, unspecified Muscle weakness (generalized) Nausea Other Alzheimer's disease Peripheral Vascular Disease Surgical History History of heart artery stent Family History Mother CAD (coronary artery disease) Sister CAD (coronary artery disease) Father Cancer Denies family history of Diabetes Stroke Social History Smoking and tobacco status: never smoked Alcohol intake: never Course Vital Signs: Vital signs: Vital Signs Temperature 97.7 F 06/27/21 03:05 Pulse Rate 94 06/27/21 07:03 Respiratory Rate 12 06/27/21 07:03 Blood Pressure 106/60 06/27/21 07:03 Pulse Oximetry 95 06/27/21 07:03 MDM - Fall MDM Narrative: Medical decision making narrative: 75-year-old female presents emerged from status post fall. Patient has right forehead bruises and hematoma. CT brain/CT neck without any signs acute injuries or brain bleed. S/p TDAP Disposition: Discharge. Patient is stable to be transferred back to [facility] for evaluation at this time. Imaging Data^: Other Imaging: Radiologist's impression: [address] [id number] Scan ReportSigned Patient: Steve García #: [id number]: 5Acct#:[id number]/Sex: 75 / FADM Date: 06/27/21Loc: ERRoom/Bed:Attending Dr: Ordering Provider/Ordering MD: Manuel Zeng NP Date of Service: 06/27/21 Procedure(s): CT head wo con* [id number] Accession Number(s): [id number] Report Number: [id number] PROCEDURE INFORMATION: Exam: CT Head Without Contrast Exam date and time: 06/27/2021 3:11 AM Age: 75 years old Clinical indication: Injury or trauma; Blunt trauma (contusions or hematomas); Patient HX: Fall at [facility]. Hematoma to RT forehead. On blood thinners. Alzheimer's disease. Unable to obtain further history. TECHNIQUE: Imaging protocol: Computed tomography of the head without contrast. Radiation optimization: All CT scans at this facility use at least one of these dose optimization techniques: automated exposure control; mA and/or kV adjustment per patient size (includes targeted exams where dose is matched to clinical indication); or iterative reconstruction. COMPARISON: CT head wo con* [id number] 08/09/2020 6:39 PM RADIATION DOSE METRICS: Total DLP (mGy-cm): 1317.64 FINDINGS: Brain: No acute infarct or hemorrhage. 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 There is moderate parenchymal atrophy and chronic small vessel disease. Cerebral ventricles: No ventriculomegaly. Paranasal sinuses: Paranasal sinuses are clear. No air-fluid level. Mastoid air cells: Visualized mastoid air cells are clear. Bones/joints: No calvarial or skull base fracture. Soft tissues: Right frontal scalp hematoma. CT/CT head wo con* [id number] IMPRESSION: 1. No acute infarct or hemorrhage. 2. No calvarial or skull base fracture. 3. 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 4. Moderate parenchymal atrophy and chronic small vessel disease. Radiation Dose CTDIVOL = (mGy): DLP = 1317.64 (mGy-cm) Dictated By:Wendi Negrete By:Wendi Negrete Date/Time:06/27/21510DD/ 9 Discharge Plan Discharge Patient Disposition: [facility] Clinical Impression: Concussion, Hematoma, Fall Condition: Stable Discharge Orders: Discharge ED (Routine); Ordered 06/27/21 Ordered By: Stephen Pierson Referrals: Kylie Mcallister MD [Primary Care Provider] - Discharge Diet: Regular Discharge Activity: Resume usual activity Patient Instructions: Concussion (ED), Fall Prevention (ED) Activity Restrictions/Additional Instructions: Come back to the emergency room if you have any worsening pain, fever/chills, nausea/vomiting, or any new or concerning complaints. Sign Out Sign Out Data: Patient Sign Out occurred on 06/27/21 at 03:31. Patient's care was discussed, and care was transferred from Manuel Zeng to Stephen Pierson MD. Sign Out Comment: Awaiting CT scan of the head and neck Last updated by Manuel Zeng FNP at 06/27/21 03:29 Coding Level of Care Code ED Metal Model Maker for Chg Fwd Exam Comprehensive
[2021-06-27 04:02] VITALS: BP 135/70; PULSE 109; RESP 14; O2SAT 100
[2021-06-27 05:04] VITALS: BP 100/60; PULSE 91; RESP 18; O2SAT 99
[2021-06-27 07:03] VITALS: BP 106/60; PULSE 94; RESP 12; O2SAT 95
== END 2021-06-27 08:01 ==
PROVIDERS: Emergency Provider Emergency Medicine; PCP Family Medicine
DX: S00.83XA Contusion of other part of head, initial encounter (principal); G30.9 Alzheimer's disease, unspecified; F02.80 Dementia in other diseases classified elsewhere, unspecified severity, without behavioral disturbance, psychotic disturbance, mood disturbance, and anxiety; E11.21 Type 2 diabetes mellitus with diabetic nephropathy; I10 Essential (primary) hypertension; E78.5 Hyperlipidemia, unspecified; E11.51 Type 2 diabetes mellitus with diabetic peripheral angiopathy without gangrene; Z95.5 Presence of coronary angioplasty implant and graft; W06.XXXA Fall from bed, initial encounter; Y92.129 Unspecified place in nursing home as the place of occurrence of the external cause
CPT/HCPCS: 70450; 72125; 99282

== ENCOUNTER → 2021-07-28 14:48 | Outpatient (BNVA) | payer MEDICARE, SELFPAY | PROVIDERS: PCP Family Medicine; Visit Provider Podiatrist Foot & Ankle Surgery | DX: M12.871 Other specific arthropathies, not elsewhere classified, right ankle and foot (principal); M79.671 Pain in right foot | CPT/HCPCS: 73630 ==